=== PATIENT | female | born 1955 ===

== ENCOUNTER 2021-01-05 07:15 | Day surgery (SDC) | payer OTHER | END 2021-01-05 11:14 | disposition home or self-care (01) | LOC: AMB-ENDOS 07:15 | PROVIDERS: ATTEND Colon & Rectal Surgery | DX: K62.89 Other specified diseases of anus and rectum (principal); K64.1 Second degree hemorrhoids; Z20.822 Contact with and (suspected) exposure to COVID-19 ==